=== PATIENT | male | born 1980 | race Two or more races ===

== ENCOUNTER 2019-04-04 21:38 | Emergency (ER) | payer SELFPAY ==
[~2019-04-04] VITALS: Ht 167.6 cm; Wt 70.3 kg
--- NOTE | 2019-04-04 22:00 | NUR ---
Pt BIBSELF FROM HOME, ACCOMPANIED BY PARENTS AT SIDE. Pt C/O LOWER ABD PAIN, W/ EPIGASTIC BURNING. PER Pt STATEMENT DID VOMIT X1 EARLIER TODAY. +DIZZINESS +WEAKNESS. AFEBRILE. Pt IS A/OX4, VERBAL ABLE TO MAKE NEEDS KNOWN. Pt IS WAITING COMFORTABLY IN ER BED 13, RESPIRATIONS EVEN AND UNLABORED. WAITING TO BE SEEN BY MD. WAITING FOR ORDERS. WILL CONTINUE TO MONITOR Pt's CONDITION AND SAFETY.
--- NOTE | 2019-04-04 22:59 | NUR ---
Pt TAKEN FOR CT ABD
[2019-04-04] MEDS ORDERED: MORPHINE SULFATE INJ 2 MG/ML DISP.SYRIN IV ONE (23:00)
[2019-04-04] MEDS ORDERED: ONDANSETRON HCL/PF 4 MG/2 ML VIAL IVP ONE (23:00)
[2019-04-04] MEDS ORDERED: IV NS 0.9% 1,000 ML BAG IV ONE (23:00)
--- NOTE | 2019-04-04 23:06 | NUR ---
Pt BROUGHT BACK FROM CT
[2019-04-04] MEDS ORDERED: ONDANSETRON HCL/PF 4 MG/2 ML VIAL ONE (23:09)
[2019-04-04] MEDS ORDERED: MORPHINE SULFATE INJ 4 MG/ML DISP.SYRIN ONE (23:10)
[2019-04-04 23:27] LABS: BASOPHILS % (AUTO) 0.2 % (0.0-2.0); EOSINOPHILS % (AUTO) 0.5 % (0.0-6.0); HEMATOCRIT 45 % (39-51); HEMOGLOBIN 15.2 g/dL (13.5-17.5); LYMPHOCYTES # (AUTO) 1.3 /CMM (0.8-4.8); LYMPHOCYTES % (AUTO) 15.1 % (20.0-44.0); MEAN CORPUSCULAR HGB CONC 34 g/dl (31.0-36.0); MEAN CORPUSCULAR VOLUME 87 fL (80-96); MONOCYTES # (AUTO) 0.7 /CMM (0.1-1.30); NEUTROPHILS # (AUTO) 6.8 /CMM (1.8-8.9); NEUTROPHILS % (AUTO) 76.2 % (43.0-81.0); PLATELET COUNT (AUTO) 250 /CMM (150-450); RED BLOOD CELL COUNT(AUTO) 5.12 MIL/uL (4.5-6.0); WHITE BLOOD COUNT (AUTO) 8.9 K/uL (4.3-11.0)
--- NOTE | 2019-04-04 23:30 | NUR ---
IV ACCESS STARTED ON LAC #20G
--- NOTE | 2019-04-04 23:32 | NUR ---
ALL ORDERED MEDS GIVEN
[2019-04-04 23:37] LABS: CARBON DIOXIDE 27 mmol/L (21-32); CHLORIDE 104 mmol/L (98-107); CREATININE 0.9 mg/dL (0.6-1.3); GLUCOSE 94 mg/dL (74-106); POTASSIUM 3.9 mmol/L (3.5-5.1); SODIUM SERUM 141 mmol/L (136-145); UREA NITROGEN, BLOOD 14 mg/dL (7-18)
[2019-04-04 23:44] LABS: ALANINE AMINOTRANSFERASE 25 U/L (12-78); ALBUMIN 3.9 g/dL (3.4-5.0); ALKALINE PHOSPHATASE 68 U/L (46-116); ASPARTATE AMINOTRANSFERASE 18 U/L (15-37); BILIRUBIN,DIRECT 0.1 mg/dL (0.0-0.2); BILIRUBIN,TOTAL 0.7 mg/dL (0.2-1.0); LIPASE 129 U/L (73-393); TOTAL PROTEIN, SERUM 7.4 g/dL (6.4-8.2)
[2019-04-05 00:18] LABS: APPEARANCE,URINE CLEAR (CLEAR); BILIRUBIN,URINE NEGATIVE (NEGATIVE); BLOOD, URINE NEGATIVE Ery/uL (NEGATIVE); COLOR,URINE YELLOW (YELLOW); KETONES,URINE 1+ (NEGATIVE); LEUKOCYTE ESTERASE ,URINE TRACE (NEGATIVE); NITRITE, URINE NEGATIVE (NEGATIVE); PROTEIN,URINE NEGATIVE (NEGATIVE); UGLUCOSE NEGATIVE (NEGATIVE); UROBILINOGEN,URINE 0.2 EU/dL (0.2)
[2019-04-05 00:26] LABS: BACTERIA,URINE None seen /HPF (None Seen); RBC,URINE 0-2 /HPF (0-2); SQUAMOUS EPITHELIAL CELL,UR Few /HPF (None Seen)
--- NOTE | 2019-04-05 00:35 | NUR ---
Patient discharged to home in stable condition. Written and verbal after care instructions given. Patient verbalizes understanding of instruction. All ordered meds given. IVF NS 1000ml given. Patient left facility on foot with steady gait. No s/s of acute distress or sob noted. Instructed pt not to drive, Pt left facility with parents at side who will drive pt home. VS stable.
[2019-04-05 00:40] VITALS: BP 135/85
== END 2019-04-05 00:41 | disposition home or self-care (01) ==
LOC: ER 21:41
DX: K29.20 Alcoholic gastritis without bleeding (principal); F10.10 Alcohol abuse, uncomplicated; F17.200 Nicotine dependence, unspecified, uncomplicated; Y90.9 Presence of alcohol in blood, level not specified
CPT/HCPCS: 36415; 71045; 74176; 80048; 80076; 81001; 83690; 84484; 85025; 85730; 93005; 96374; 96375; 99284; J2270; J2405; J7030; 81000-TC

== ENCOUNTER 2019-06-09 19:25 | Emergency (ER) | payer SELFPAY ==
[~2019-06-09] VITALS: Ht 170.2 cm; Wt 68.0 kg
--- NOTE | 2019-06-09 20:57 | NUR ---
TO BED 1 AMBULATROY C/O HEADACHE X2 WEEK. PT AAOX4 NO ACUTE DISTRESS NOTED, RESP EVEN AND UNLABORED. 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 PENDING ER MD MCGUIRE.
[2019-06-09] MEDS ORDERED: LORAZEPAM 1 MG TABLET ONE (21:36)
--- NOTE | 2019-06-09 21:47 | NUR ---
Patient discharged to home in stable condition. Written and verbal after care instructions given. Patient verbalizes understanding of instruction. ambulatory with a steady gait noted. advice pt not to drive or operate any machinery due to pt was given narcotic medicine.
[2019-06-09 21:48] VITALS: BP 134/75
[2019-06-09] MEDS ORDERED: LORAZEPAM 1 MG TABLET PO ONE (22:00)
== END 2019-06-09 21:49 | disposition home or self-care (01) ==
LOC: ER 19:25
DX: F41.9 Anxiety disorder, unspecified (principal); G44.209 Tension-type headache, unspecified, not intractable; R20.2 Paresthesia of skin; K21.9 Gastro-esophageal reflux disease without esophagitis; F32.9 Major depressive disorder, single episode, unspecified; F10.10 Alcohol abuse, uncomplicated; F17.200 Nicotine dependence, unspecified, uncomplicated; Y90.9 Presence of alcohol in blood, level not specified; Z72.820 Sleep deprivation